=== PATIENT | male | born 1960 | race Caucasian/White ===

== ENCOUNTER 2021-11-07 09:31 | Emergency (ER) | payer OTHER ==
[~2021-11-07] VITALS: Ht 185.4 cm; Wt 86.2 kg
--- NOTE | 2021-11-07 09:35 | NUR ---
pt assisted into bed 11 by amr
[2021-11-07 09:36] VITALS: BP 114/72
--- NOTE | 2021-11-07 09:47 | NUR ---
61/M BIBA WITH C/O RIGHT SIDED RIB PAIN. PATIENT STATES LAST NIGHT HE FELL AT HOME WHEN ATTEMPTING TO REACH FOR A WIRE, STATING HE FELL ONTO THE ARM OF A CHAIR ON HIS RIGHT RIB AREA. PATIENT C/O 8/10 THROBBING PAIN THAT WORSENS WITH MOVEMENT AND TOUCH OF RIGHT FLANK, STATES FEELING SOB. PATIENT WAS GIVEN 50MG FENTANYL IV AND 4MG ZOFRAN IV BY EMS PRIOR TO ARRIVAL TO ED WITH MILD RELIEF. NO SIGNS OF REDNESS OR BRUISING TO RIGHT FLANK AREA. PATIENT ALERT AND ORIENTED X4, ABLE TO ANSWER QUESTIONS APPROPRIATELY, PLACED IN GOWN ON BEDSIDE LINE ERECTOR. DR. SIMMONS AWARE OF PATIENT.
--- NOTE | 2021-11-07 11:30 | NUR ---
PATIENT RESTING IN BED WITH EYES CLOSED, ON BEDSIDE SENIOR DRAFTER. WILL CONTINUE TO MONITOR.
[2021-11-07 11:57] VITALS: BP 110/73
--- NOTE | 2021-11-07 13:00 | NUR ---
PATIENT AMBULATED TO RESTROOM WITH STEADY GAIT
[2021-11-07] MEDS ORDERED: IBUP-2213 PO (14:37)
[2021-11-07] MEDS ORDERED: ACET-8386 PO (14:37)
[2021-11-07] MEDS ORDERED: LID5T TP (14:37)
--- NOTE | 2021-11-07 14:52 | NUR ---
PATIENT ELOPED FROM FACILITY. DISCHARGE INSTRUCTIONS NOT GIVEN TO PATIENT. DR. SIMMONS NOTIFIED. SPOKE WITH FATHER AND GIVEN UPDATE THAT PATIENT LEFT OUR HOSPITAL.
== END 2021-11-07 14:47 | disposition left against medical advice (07) ==
LOC: MED 09:31
DX: S22.31XA Fracture of one rib, right side, initial encounter for closed fracture (principal); J93.9 Pneumothorax, unspecified; I10 Essential (primary) hypertension; Z79.899 Other long term (current) drug therapy; W18.30XA Fall on same level, unspecified, initial encounter; Y93.89 Activity, other specified; Y92.89 Other specified places as the place of occurrence of the external cause; Y99.8 Other external cause status
CPT/HCPCS: 71045; 71250; 99284; Q0092